=== PATIENT | female | born 1965 | race Caucasian/White ===

== ENCOUNTER 2020-03-23 12:30 | Emergency (ER) | payer SELFPAY ==
--- NOTE | 2020-03-23 13:36 | EDM.PDOC ---
ED HPI GENERAL MEDICAL PROBLEM - General Chief Complaint: Neck Problem Stated Complaint: PULLED MUSCLES NECK/SHOULDER Time Seen by Provider: 03/23/20 13:24 Source of Information: Reports: Patient History Limitations: Reports: No Limitations - History of Present Illness INITIAL COMMENTS - FREE TEXT/NARRATIVE: Patient is a 54-year-old female presents today for right-sided neck pain. Patient states yesterday she was moving heavy boxes last night she felt a strain in her neck. Patient has pain when she turns her head mostly to the left. Patient states that she had difficulty sleeping due to the pain. Patient denies any chest pain nausea vomiting fever chills. Patient has any extremity weakness or numbness. 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: - Infectious Disease History Infectious Disease History: Reports: None - Past Surgical History GI Surgical History: Reports: Appendectomy Female Surgical History: Reports: Hysterectomy Musculoskeletal Surgical History: Reports: Other (See Below) Other Musculoskeletal Surgeries/Procedures:: wrist surgery Social & Family History - Family History Family Medical History: No Pertinent Family History - Tobacco Use Packs/Tins Daily: 1 - Caffeine Use Caffeine Use: Reports: None - Recreational Drug Use Recreational Drug Use: No ED ROS GENERAL - Review of Systems Review Of Systems: See Below Constitutional: Reports: No Symptoms HEENT: Reports: No Symptoms Respiratory: Reports: No Symptoms Cardiovascular: Reports: No Symptoms Endocrine: Reports: No Symptoms GI/Abdominal: Reports: No Symptoms : Reports: No Symptoms Musculoskeletal: Reports: No Symptoms Skin: Reports: No Symptoms Neurological: Reports: No Symptoms Psychiatric: Reports: No Symptoms Hematologic/Lymphatic: Reports: No Symptoms Immunologic: Reports: No Symptoms ED EXAM, GENERAL - Physical Exam Exam: See Below Exam Limited By: No Limitations General Appearance: Alert, WD/WN, No Apparent Distress Neck: Supple, Non-Tender, Tender Lateral. No: Full Range of Motion, Tender Midline Respiratory/Chest: No Respiratory Distress, Lungs Clear Cardiovascular: Regular Rate, Rhythm Neurological: Alert, Oriented, Normal Cognition, Normal Gait Course - Vital Signs Last Recorded V/S: Last Vital Signs Temp 98.4 F 03/23/20 13:07 Pulse 106 H 03/23/20 13:07 Resp 16 03/23/20 13:07 BP 123/85 03/23/20 13:07 Pulse Ox 97 03/23/20 13:07 Departure - Departure Time of Disposition: 13:35 Disposition: Home, Self-Care 01 Condition: Good Clinical Impression: Torticollis - Discharge Information *PRESCRIPTION DRUG MONITORING PROGRAM REVIEWED*: Not Applicable *COPY OF PRESCRIPTION DRUG MONITORING REPORT IN PATIENT STEPHANIE: Not Applicable Instructions: Acute Torticollis, Adult Referrals: PCP,None [Primary Care Provider] - Additional Instructions: The following information is given to patients seen in the emergency department who are being discharged to home. This information is to outline your options for follow-up care. We provide all patients seen in our emergency department wi th a follow-up referral. The need for follow-up, as well as the timing and circumstances, are variable depending upon the specifics of your emergency department visit. If you don't have a primary care physician on staff, we will provide you with a referral. We always advise you to contact your personal physician following an emergency department visit to inform them of the circumstance of the visit and for follow-up with them and/or the need for any referrals to a consulting specialist. The emergency department will also refer you to a specialist when appropriate. This referral assures that you have the opportunity for follow-up care with a specialist. All of these measure are taken in an effort to provide you with optimal care, which includes your follow-up. Under all circumstances we always encourage you to contact your private physician who remains a resource for coordinating your care. When calling for follow-up care, please make the office aware that this follow-up is from your recent emergency room visit. If for any reason you are refused follow-up, please contact the [facility] Emergency Department at and asked to speak to the emergency department charge nurse. Please follow up with your primary care physician. If you do not have a primary care physician, see below: [facility] [address] [place] [address] [facility] [address] [place] [address] Please take the pain medication we prescribed when you get home and do not drink or drive with those medications. Please apply heat to the side of your neck and read the additional discharge information we provided you. If you have any other concerning symptoms or complaints please return to the ED. Sepsis Event Note (ED) - Evaluation Sepsis Screening Result: No Definite Risk - Focused Exam Vital Signs: Vital Signs Temp Pulse Resp BP Pulse Ox 03/23/20 13:07 98.4 F 106 H 16 123/85 97 - Assessment/Plan Assessment:: Kvng is a 54-year-old female presents today for neck pain. Pain seems very muscular on examination she has point tenderness to the lateral side of her neck. Patient has pain with ranging her neck. Patient has allergies to NSAIDs Flexeril and is difficult to find a medication to give patient to treat pain. Patient also drove here so we cannot give patient any narcotics. We can send patient home with a couple days of narcotics that she can take when she gets home. Patient [place] 25 [place] away and has a cat with her it would be not safe to give patient any pain meds in ER and have her drive home. Patient understands and would like to just have a prescription and will take medicine when she gets home. Patient has no other concerning findings on exam.
[2020-03-23 14:02] VITALS: BP 112/74; PULSE 107
== END 2020-03-23 13:53 | disposition home or self-care (01) ==
LOC: MW.ED 12:30
DX: S13.4XXA Sprain of ligaments of cervical spine, initial encounter (principal); Z88.8 Allergy status to other drugs, medicaments and biological substances; X50.9XXA Other and unspecified overexertion or strenuous movements or postures, initial encounter
CPT/HCPCS: 99283

== ENCOUNTER 2020-03-29 09:09 | Emergency (ER) | payer SELFPAY ==
--- NOTE | 2020-03-29 09:37 | EDM.PDOC ---
ED HPI GENERAL MEDICAL PROBLEM - General Chief Complaint: Neck Problem Stated Complaint: HURT NECK ON 6TH Time Seen by Provider: 03/29/20 09:32 Source of Information: Reports: Patient History Limitations: Reports: No Limitations - History of Present Illness INITIAL COMMENTS - FREE TEXT/NARRATIVE: Patient is a 54-year-old female who presents today for neck and shoulder pain. Patient had this pain about a week ago was seen in the ER at that time did not want any imaging. We were able to provide patient with some pain relief. Patient is a pain happened after she was lifting some heavy boxes. Patient denied any direct trauma. Patient denies any numbness to the arm. Patient denies any chest pain shortness of breath fever chills or other concerning findings. 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: - Infectious Disease History Infectious Disease History: Reports: None - Past Surgical History GI Surgical History: Reports: Appendectomy Female Surgical History: Reports: Hysterectomy Musculoskeletal Surgical History: Reports: Other (See Below) Other Musculoskeletal Surgeries/Procedures:: wrist surgery Social & Family History - Family History Family Medical History: No Pertinent Family History - Tobacco Use Packs/Tins Daily: 1 - Caffeine Use Caffeine Use: Reports: None - Recreational Drug Use Recreational Drug Use: No ED ROS GENERAL - Review of Systems Review Of Systems: See Below Constitutional: Reports: No Symptoms HEENT: Reports: No Symptoms Respiratory: Reports: No Symptoms Cardiovascular: Reports: No Symptoms Endocrine: Reports: No Symptoms GI/Abdominal: Reports: No Symptoms : Reports: No Symptoms Musculoskeletal: Reports: Arm Pain Skin: Reports: No Symptoms Neurological: Reports: No Symptoms Psychiatric: Reports: No Symptoms Hematologic/Lymphatic: Reports: No Symptoms Immunologic: Reports: No Symptoms ED EXAM, GENERAL - Physical Exam Exam: See Below Exam Limited By: No Limitations General Appearance: Alert, WD/WN, No Apparent Distress Respiratory/Chest: No Respiratory Distress, Lungs Clear Cardiovascular: Normal Peripheral Pulses, Regular Rate, Rhythm Peripheral Pulses: 2+: Radial (L), Radial (R) Extremities: Normal Inspection, Normal Range of Motion, Non-Tender Neurological: Alert, Oriented, Normal Cognition #1 Interpretation EKG Date: 03/29/20 Time: 09:57 Rhythm: Other (sinus tach) Rate (Beats/Min): 101 ST-T: Normal Course - Vital Signs Last Recorded V/S: Last Vital Signs Temp 97 F 03/29/20 09:15 Pulse 104 H 03/29/20 10:23 Resp 16 03/29/20 10:23 BP 118/79 03/29/20 10:23 Pulse Ox 94 L 03/29/20 10:23 - Orders/Labs/Meds Orders: Active Orders 24 hr Category Date Time Status EKG Documentation Completion [RC] STAT Care 03/29/20 09:38 Active - Re-Assessments/Exams Free Text/Narrative Re-Assessment/Exam: 03/29/20 10:38 And will be discharged home given referral to physical therapy to help out with this shoulder pain. Is very muscle skeletal in nature but she has point tenderness. Does not seem to be cardiac or any other structural related issues causing this pain. Departure - Departure Time of Disposition: 10:38 Disposition: Home, Self-Care 01 Condition: Good Clinical Impression: Torticollis - Discharge Information *PRESCRIPTION DRUG MONITORING PROGRAM REVIEWED*: Not Applicable *COPY OF PRESCRIPTION DRUG MONITORING REPORT IN PATIENT STEPHANIE: Not Applicable Instructions: Acute Torticollis, Adult Referrals: PCP,None [Primary Care Provider] - Forms: ED Department Discharge Additional Instructions: The following information is given to patients seen in the emergency department who are being discharged to home. This information is to outline your options for follow-up care. We provide all patients seen in our emergency department with a follow-up referral. The need for follow-up, as well as the timing and circumstances, are variable depending upon the specifics of your emergency department visit. If you don't have a primary care physician on staff, we will provide you with a referral. We always advise you to contact your personal physician following an emergency department visit to inform them of the circumstance of the visit and for follow-up with them and/or the need for any referrals to a consulting specialist. The emergency department will also refer you to a specialist when appropriate. This referral assures that you have the opportunity for follow-up care with a specialist. All of these measure are taken in an effort to provide you with optimal care, which includes your follow-up. Under all circumstances we always encourage you to contact your private physi tracy who remains a resource for coordinating your care. When calling for follow- up care, please make the office aware that this follow-up is from your recent emergency room visit. If for any reason you are refused follow-up, please contact the [facility] Emergency Department at and asked to speak to the emergency department charge nurse. Please follow up with your primary care physician. If you do not have a primary care physician, see below: [facility] [address] [place] [id number] [facility] [address] [place] [phone] Please follow-up with physical therapy we provided you a slip for you to go and make an appointment to see them. If you develop any other concerning symptoms please return to the ED. Sepsis Event Note (ED) - Evaluation Sepsis Screening Result: No Definite Risk - Focused Exam Vital Signs: Vital Signs Temp Pulse Resp BP Pulse Ox 03/29/20 10:23 104 H 16 118/79 94 L 03/29/20 09:15 97 F 108 H 16 117/84 96 - My Orders Last 24 Hours: My Active Orders 03/29/20 09:38 EKG Documentation Completion [RC] STAT - Assessment/Plan Last 24 Hours: My Active Orders 03/29/20 09:38 EKG Documentation Completion [RC] STAT Assessment:: Patient is a 54-year-old female who presents today for right sided neck and shoulder pain without any trauma. We will obtain x-ray of shoulder. There is no other concerning findings or complaints on physical examination.
--- NOTE | 2020-03-29 10:30 | CR ---
Indication: Limited range of motion and shoulder due to pain. Technique: Right shoulder 3 views. Comparison: None. Findings: No acute fracture or dislocation. Mild degenerative changes of the glenohumeral and acromioclavicular joints. Old right rib fracture. The visualized right lung is clear. Soft tissues are unremarkable. Impression: 1. No acute findings. 2. Mild degenerative changes of the glenohumeral and acromioclavicular joints. Dictated by Lorie Gallegos MD @ Mar 29 2020 10:26AM Signed by Dr. Lorie Gallegos @ Mar 29 2020 10:28AM
[2020-03-29] MEDS: Lidocaine 5% 700 MG Patch TOP ONE (10:49)
[2020-03-29 10:56] VITALS: BP 125/75; PULSE 100
== END 2020-03-29 10:54 | disposition home or self-care (01) ==
LOC: MW.ED 09:09
DX: M43.6 Torticollis (principal); Z88.8 Allergy status to other drugs, medicaments and biological substances
CPT/HCPCS: 73030; 93005; 99283; A9270; 93010